=== PATIENT | female | born 1980 | race Caucasian/White ===

== ENCOUNTER 2018-08-01 15:15 | Inpatient (IN) | payer OTHER ==
[~2018-08-01] VITALS: Ht 154.9 cm; Wt 67.1 kg
[~2018-08-01 15:15] MED LIST: ACIDOPHILUS1 EAC3 PO; CITRANATAL B-C1 EAC1
== END 2018-09-02 13:33 | disposition home or self-care (01) | DRG 807 ==
LOC: OB/GYN 08-16 13:30 → LDR 08-31 02:00 → OB/GYN 08-31 09:51
PROVIDERS: ADMIT Obstetrics & Gynecology
PROC: 10E0XZZ Delivery of Products of Conception, External Approach (ICD-10-PCS; principal; 2018-08-31)
PROC: 4A1HXCZ Monitoring of Products of Conception, Cardiac Rate, External Approach (ICD-10-PCS; 2018-08-31)
DX: O80 Encounter for full-term uncomplicated delivery (principal); Z37.0 Single live birth; Z3A.38 38 weeks gestation of pregnancy